=== PATIENT | female | born 1985 | race African-American/Black ===

== ENCOUNTER 2021-12-16 23:34 | Emergency (ER) | payer MEDICAID ==
[~2021-12-16] VITALS: Ht 160 cm; Wt 80.0 kg
[2021-12-17] MEDS ORDERED: CYCL10TA21 MT ×2 (01:26)
[2021-12-17] MEDS ORDERED: IBUP-2029 MT ×2 (01:26)
[2021-12-17 01:48] LABS: *AMPHETAMINES SCREEN URINE NEGATIVE (NEGATIVE); *BARBITURATES SCREEN URINE NEGATIVE (NEGATIVE); *BENZODIAZEPINES SCREEN URINE NEGATIVE (NEGATIVE); *COCAINE SCREEN URINE NEGATIVE (NEGATIVE); CANNABINOID URINE SCREEN NEGATIVE (NEGATIVE); METHADONE URINE SCREEN NEGATIVE (NEGATIVE); OPIATES URINE SCREEN NEGATIVE (NEGATIVE); PHENCYCLIDINE URINE SCREEN NEGATIVE (NEGATIVE)
[2021-12-17 02:33] VITALS: BP 109/69
== END 2021-12-17 02:34 | disposition home or self-care (01) ==
LOC: ER 23:34
DX: Z00.00 Encounter for general adult medical examination without abnormal findings (principal); F39 Unspecified mood [affective] disorder
CPT/HCPCS: 80305; 81025; 99283